=== PATIENT | female | born 2000 | race Two or more races ===

== ENCOUNTER → 2019-06-28 | Outpatient (CLI) | payer OTHER ==
--- NOTE | 2019-06-28 20:08 | REP ---
Chest x-ray: Two views. History: Cough. Findings: The lungs are symmetrically aerated and free of infiltrate. Pleural angles are sharp. Heart size is normal. Pulmonary vasculature is not increased. No significant bony abnormality. Impression: Negative chest x-ray. Electronically Signed by Storm Crawley MD 06/28/2019 07:59 P
== END ==
LOC: M LRY 18:53
PROVIDERS: ATTEND Nurse Practitioner Family
DX: R05 Cough (principal)